=== PATIENT | female | born 1950 | race Caucasian/White ===

== ENCOUNTER → 2023-05-11 11:02 | Outpatient (REF) | payer MEDICARE, OTHER, SELFPAY ==
[2023-05-11 13:13] LABS: Folate > 20.0 ng/ml (2.76-20); Vitamin B12 944 pg/ml (239-931)
[2023-05-13 07:39] LABS: Homocysteine 7 umol/L (0-15)
== END ==
LOC: REG 11:02
PROVIDERS: ATTENDING PHYSICIAN Psychiatry & Neurology Neurology; FAMILY PHYSICIAN Physician Assistant
DX: R79.89 Other specified abnormal findings of blood chemistry (principal); D51.9 Vitamin B12 deficiency anemia, unspecified
CPT/HCPCS: 36415; 82607; 82746; 83090

== ENCOUNTER → 2023-06-29 14:03 | Outpatient (REF) | payer MEDICARE, OTHER, SELFPAY ==
[2023-06-29 15:33] LABS: ALT (SGPT) 14 U/L (0-35); AST (SGOT) 23 U/L (14-36); Albumin 4.4 g/dl (3.5-5.0); Alkaline Phosphatase 54 U/L (38-126); Blood Urea Nitrogen 11 mg/dl (7-17); Calcium 9.6 mg/dl (8.4-10.2); Carbon Dioxide 28 mmol/L (22-30); Chloride 104 mmol/L (98-107); Glucose 99 mg/dl (70-99); Potassium 4.4 mmol/L (3.5-5.1); Sodium 136 mmol/L (135-145); Total Bilirubin 0.6 mg/dl (0.2-1.3); Total Protein 7.2 g/dl (6.3-8.2); eGFR > 60.00
[2023-06-29 15:49] LABS: Free T4 1.03 ng/dl (0.78-2.19)
[2023-06-29 16:03] LABS: TSH 3.57 uIU/ml (0.47-4.68)
== END ==
LOC: RCS 14:03
PROVIDERS: ATTENDING PHYSICIAN Internal Medicine Endocrinology, Diabetes & Metabolism; FAMILY PHYSICIAN Physician Assistant
DX: E06.3 Autoimmune thyroiditis (principal); I49.9 Cardiac arrhythmia, unspecified
CPT/HCPCS: 36415; 80053; 84439; 84443; 93005

== ENCOUNTER → 2023-08-05 13:45 | Outpatient (REF) | payer MEDICARE, OTHER, SELFPAY | LOC: HWRCS 13:45 | PROVIDERS: ATTENDING PHYSICIAN Internal Medicine Interventional Cardiology | DX: I48.91 Unspecified atrial fibrillation (principal) | CPT/HCPCS: 93306 ==

== ENCOUNTER → 2024-10-31 10:21 | Outpatient (REF) | payer MEDICARE, OTHER, SELFPAY | LOC: REG 10:21 | PROVIDERS: ATTENDING PHYSICIAN Psychiatry & Neurology Neurology; FAMILY PHYSICIAN Physician Assistant | DX: E03.8 Other specified hypothyroidism (principal) | CPT/HCPCS: 36415; 84443 ==